=== PATIENT | female | born 1990 | race American Indian/Alaskan Native ===

== ENCOUNTER 2016-10-15 01:38 | Emergency (ER) | payer MEDICAID | END 2016-10-15 02:15 | disposition left against medical advice (07) | LOC: ED 01:38 | DX: H57.8 Other specified disorders of eye and adnexa (principal); Z53.21 Procedure and treatment not carried out due to patient leaving prior to being seen by health care provider ==

== ENCOUNTER 2017-09-06 23:47 | Emergency (ER) | payer MEDICAID ==
[2017-09-07] MEDS ORDERED: ZOFRAN IV ONE (01:44)
[2017-09-07] MEDS ORDERED: NACL 0.9% 1000 ML 1,000 ML IV ONE (01:44)
[2017-09-07] MEDS ORDERED: TYLENOL PO ONE (02:08)
[2017-09-07 02:38] LABS: Basophils % (Auto) 0.3 % (0.0-1.8); Eosinophils # (Auto) 0.2 K/mm3 (0.0-0.4); Eosinophils % (Auto) 1.7 % (0.0-4.3); Hematocrit 32.1 % (30.3-42.9); Hemoglobin 10.8 gm/dl (10.1-14.3); Lymphocytes # (Auto) 3.9 K/mm3 (1.2-5.4); Lymphocytes % (Auto) 34.7 % (13.4-35.0); Mean Corpuscular HGB Conc 34 % (30-34); Mean Corpuscular Hemoglobin 26 pg (28-32); Mean Corpuscular Volume 78 fl (79-97); Monocytes % (Auto) 8.7 % (0.0-7.3); Platelet Count 303 K/mm3 (140-440); Red Blood Count 4.14 M/mm3 (3.65-5.03); Red Cell Distribution Width 17.6 % (13.2-15.2)
[2017-09-07 03:12] LABS: BUN/Creatinine Ratio 20; Blood Urea Nitrogen 6 mg/dL (7-17); Calcium 8.8 mg/dL (8.4-10.2); Hemolysis Index 4
[2017-09-07 10:21] VITALS: BP 125/60
--- NOTE | 2017-09-07 10:36 | Emergency Department Report ---
ED HPI - General Chief complaint: Vaginal Bleeding Stated complaint: NAUSEA,HEADACHE Time Seen by Provider: 09/07/17 10:00 Source: patient Mode of arrival: Ambulatory Limitations: No Limitations - History of Present Illness Initial comments: She is a 27-year-old female that presents emergency room with complaints of vaginal spotting for 2 days. Patient complains of nausea and vomiting and headache for 2 weeks. Patient states that her headache has resolved. Patient states the vaginal spotting has stopped. Patient states that the nausea and vomiting are intermittent and is difficult to hold food down. Patient states she is able to hold fluids down. Patient denies abdominal pain. Patient denies chest pain shortness of breath. Patient denies fever or chills. Patient states she has not weeks based on her LMP. Patient states LMP is 07/06/2017 MD Complaint: vaginal bleeding (patient complains of intermittent vaginal spotting none now) -: Sudden Associated symptoms: nausea/vomiting, vaginal bleeding, headache. denies: vaginal discharge, abdominal pain, dysuria, vision changes, malaise, dysparuenia , rash, seizure, shortness of breath, syncope, weakness Vaginal bleeding: light :: Yes OB History - Current : no complications, hyperemesis OB History - Previous Pregnancies: no complications Pre- care: none - Related Data Home Medications Medication Instructions Recorded Confirmed Last Taken medroxyPROGESTERone ACETATE 150 mg IM Q3M 01/07/14 01/07/14 10/13/13 [Depo-Provera (Contraception)] Previous Rx's Medication Instructions Recorded Last Taken Type HYDROcodone/APAP 7.5-325 [[place] 1 each PO Q6HR PRN #20 tablet 01/07/14 Unknown Rx 7.5/325 mg] Ibuprofen [Motrin] 600 mg PO Q8H PRN #60 tablet 01/07/14 Unknown Rx Penicillin Vk [Veetids TAB] 500 mg PO QID #40 tablet 01/07/14 Unknown Rx Ondansetron [Zofran Odt] 4 mg PO Q6HR PRN #30 tab.rapdis 09/07/17 Unknown Rx Allergies Allergy/AdvReac Type Severity Reaction Status Date / Time shellfish derived Allergy Severe Shortness Verified 01/07/14 07:58 of Breath fish derived Allergy Intermediate Shortness Verified 01/07/14 07:58 of Breath ED Review of Systems ROS: Stated complaint: NAUSEA,HEADACHE Other details as noted in HPI Constitutional: denies: chills, fever Eyes: denies: eye pain, eye discharge, vision change ENT: denies: ear pain, throat pain Respiratory: denies: cough, shortness of breath, wheezing Cardiovascular: denies: chest pain, palpitations Endocrine: no symptoms reported Gastrointestinal: nausea, vomiting. denies: abdominal pain, diarrhea Genitourinary: denies: urgency, dysuria, discharge Musculoskeletal: denies: back pain, joint swelling, arthralgia Skin: denies: rash, lesions Neurological: headache. denies: weakness, paresthesias Psychiatric: denies: anxiety, depression Hematological/Lymphatic: denies: easy bleeding, easy bruising ED Past Medical Hx - Past Medical History Previous Medical History?: No Hx Hypertension: No Hx Congestive Heart Failure: No Hx Diabetes: No Hx Deep Vein Thrombosis: No Hx Renal Disease: No Hx Sickle Cell Disease: No Hx Seizures: No Hx Asthma: No Hx COPD: No Hx HIV: No - Surgical History Past Surgical History?: No - Family History Family history: no significant - Social History Smoking Status: Never Smoker Substance Use Type: None - Medications Home Medications: Home Medications Medication Instructions Recorded Confirmed Last Taken Type HYDROcodone/APAP 7.5-325 [[place] 1 each PO Q6HR PRN #20 tablet 01/07/14 Unknown Rx 7.5/325 mg] Ibuprofen [Motrin] 600 mg PO Q8H PRN #60 tablet 01/07/14 Unknown Rx Penicillin Vk [Veetids TAB] 500 mg PO QID #40 tablet 01/07/14 Unknown Rx medroxyPROGESTERone ACETATE 150 mg IM Q3M 01/07/14 01/07/14 10/13/13 History [Depo-Provera (Contraception)] Ondansetron [Zofran Odt] 4 mg PO Q6HR PRN #30 tab.rapdis 09/07/17 Unknown Rx ED Physical Exam - General Limitations: No Limitations General appearance: alert, in no apparent distress - Head Head exam: Present: atraumatic, normocephalic - Eye Eye exam: Present: normal appearance - ENT ENT exam: Present: mucous membranes moist - Neck Neck exam: Present: normal inspection - Respiratory Respiratory exam: Present: normal lung sounds bilaterally. Absent: respiratory distress - Cardiovascular Cardiovascular Exam: Present: regular rate, normal rhythm. Absent: systolic murmur, diastolic murmur, rubs, gallop - GI/Abdominal GI/Abdominal exam: Present: soft, normal bowel sounds - Extremities Exam Extremities exam: Present: normal inspection - Back Exam Back exam: Present: normal inspection - Neurological Exam Neurological exam: Present: alert, oriented X3 - Psychiatric Psychiatric exam: Present: normal affect, normal mood - Skin Skin exam: Present: warm, dry, intact, normal color. Absent: rash ED Course Vital Signs 09/06/17 09/07/17 09/07/17 23:52 01:38 07:46 Temperature 98.4 F 98.4 F 98.4 F Pulse Rate 69 67 55 L Respiratory 18 16 16 Rate Blood Pressure 120/71 120/71 Blood Pressure 127/72 [Left] O2 Sat by Pulse 100 100 100 Oximetry 09/07/17 10:20 Temperature Pulse Rate 59 L Respiratory 16 Rate Blood Pressure Blood Pressure 125/60 [Left] O2 Sat by Pulse 100 Oximetry - Reevaluation(s) Reevaluation #1: Discussed all results with patient. Patient is stable for discharge. We'll discharge patient home with prescription for nausea and vomiting and instructions to follow-up with [employer] as soon as possible. Patient had an early dose of Zofran and has not had nausea or vomiting since. Patient states her nausea vomiting and headache have resolved. We will do a by mouth challenge. 09/07/17 10:36 Reevaluation #2: . Patient tolerated by mouth challenge. patient is stable for discharge. Instructed to advance diet as tolerated and take vitamin 09/07/17 10:47 ED Medical Decision Making - Lab Data Result diagrams: 09/07/17 Unknown 09/07/17 Unknown - Radiology Data Radiology results: report reviewed Ultrasound reviewed and shows a single IUP at 9 weeks and 1 day - Medical Decision Making She has a 27-year-old female presents to [facility] with vaginal spotting and nausea and vomiting and headache. Ultrasound done and show stable IUP. Patient is stable for discharge. Discharge instructions given to patient - Differential Diagnosis n/v. vaginal spotting. Critical care attestation.: If time is entered above; I have spent that time in minutes in the direct care of this critically ill patient, excluding procedure time. ED Disposition Clinical Impression: , Nausea/vomiting in Disposition: DC-01 TO HOME OR SELFCARE Is pt being admited?: No Does the pt Need Aspirin: No Condition: Stable Instructions: (ED), Hyperemesis Gravidarum (ED) Additional Instructions: Patient follow-up with primary care in 3-5 days. 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 Patient to return to ER if condition worsens. Patient to start vitamin. Patient to increase water. Patient to rest. Patient to increase diet as tolerated. Prescriptions: Ondansetron [Zofran Odt] 4 mg PO Q6HR PRN #30 tab.rapdis PRN Reason: Nausea And Vomiting Referrals: PRIMARY CARE,MD [Primary Care Provider] - 3-5 Days Forms: Accompanied Note, Work/School Release Form(ED) Time of Disposition: 10:45
--- NOTE | 2017-09-08 14:29 | Ultrasound Report ---
FINAL REPORT PROCEDURE: US OB < = 14 WEEKS FETUS TECHNIQUE: Real-time transabdominal sonography of the uterus, placenta, amniotic fluid, adnexa, and fetus was performed with image documentation. Measurements were obtained to determine age/size. M-mode Doppler was used to document heartbeat. CPT 90672 HISTORY: vaginal bleeding COMPARISON: No prior studies are available for comparison. FINDINGS: CRL: 24.5 mm, which corresponds to a gestational age of: 9 weeks, 1 days. Yolk Sac: Normal. Embryonic Cardiac Activity: 166 beats per minute Gestational Sac: Normal. Amniotic fluid: Normal. Cervix: Normal. Right Ovary: Normal. Left Ovary: Normal. Estimated delivery date: 04/11/2018 Uterus and adnexa: Normal. IMPRESSION: Single live intrauterine gestation at approximately 9 weeks and 1 day. EDC by 04/11/2018
--- NOTE | 2017-09-08 14:29 | Ultrasound Report ---
FINAL REPORT PROCEDURE: US OB < = 14 WEEKS FETUS TECHNIQUE: Real-time transvaginal sonography of the uterus, placenta, amniotic fluid, adnexa, and fetus was performed with image documentation. Measurements were obtained to determine age/size. M-mode Doppler was used to document heartbeat. HISTORY: vaginal bleeding COMPARISON: No prior studies are available for comparison. FINDINGS: CRL: 24.5 mm, which corresponds to a gestational age of: 9 weeks, 1 days. Yolk Sac: Normal. Embryonic Cardiac Activity: 166 beats per minute Gestational Sac: Normal. Amniotic fluid: Normal. Cervix: Normal. Right Ovary: Normal. Left Ovary: Normal. Estimated delivery date: 04/11/2018 Uterus and adnexa: Normal. IMPRESSION: Single live intrauterine gestation at approximately 9 weeks and 1 day. EDC by 04/11/2018
== END 2017-09-07 11:00 | disposition home or self-care (01) ==
LOC: ED 23:47
DX: O21.9 Vomiting of pregnancy, unspecified (principal); Z3A.09 9 weeks gestation of pregnancy; Z91.013 Allergy to seafood
CPT/HCPCS: 36415; 76801; 76817; 80048; 84702; 85025; 96361; 96374; 99284; J2405; J7030

== ENCOUNTER 2018-05-18 11:04 | Emergency (ER) | payer BC, MEDICAID, OTHER ==
[2018-05-18 14:19] LABS: Hematocrit 30.9 % (30.3-42.9); Hemoglobin 9.7 gm/dl (10.1-14.3); Mean Corpuscular HGB Conc 32 % (30-34); Mean Corpuscular Volume 71 fl (79-97); Platelet Count 397 K/mm3 (140-440); Red Blood Count 4.33 M/mm3 (3.65-5.03); Red Cell Distribution Width 18.4 % (13.2-15.2)
[2018-05-18 14:30] LABS: BUN/Creatinine Ratio 18; Blood Urea Nitrogen 7 mg/dL (7-17); Calcium 8.6 mg/dL (8.4-10.2); Hemolysis Index 2
--- NOTE | 2018-05-18 14:45 | Emergency Department Report ---
ED Recheck HPI - General Chief Complaint: Abdominal Pain Stated Complaint: POST SURGICAL Time Seen by Provider: 05/18/18 14:40 Source: patient Mode of arrival: Ambulatory Limitations: No Limitations - History of Present Illness Initial Comments: Patient comes to the ER today for a recheck after having a on 1225. She had her baby here. Her HARP REGULATOR was actually at another hospital but since she was unable to make it to the hospital for the delivery he will not see her until she is 3 months . Patient really just wanted a recheck she is having no problems no pain. The wound is closed well approximated and healing. She is mind return to work. - Related Data Allergies Allergy/AdvReac Type Severity Reaction Status Date / Time shellfish derived Allergy Severe Shortness Verified 01/07/14 07:58 of Breath fish derived Allergy Intermediate Shortness Verified 01/07/14 07:58 of Breath ED Review of Systems ROS: Stated complaint: POST SURGICAL Other details as noted in HPI Comment: All other systems reviewed and negative Constitutional: denies: chills, fever Eyes: denies: eye pain ENT: denies: ear pain Respiratory: denies: cough Cardiovascular: denies: palpitations Endocrine: denies: excessive sweating Gastrointestinal: denies: abdominal pain, nausea, vomiting Genitourinary: denies: urgency Musculoskeletal: denies: back pain Skin: as per HPI, other ([facility] denies: rash, lesions Neurological: denies: weakness Psychiatric: denies: anxiety Hematological/Lymphatic: denies: easy bleeding ED Past Medical Hx - Past Medical History Hx Hypertension: No Hx Congestive Heart Failure: No Hx Diabetes: No Hx Deep Vein Thrombosis: No Hx Renal Disease: No Hx Sickle Cell Disease: No Hx Seizures: No Hx Asthma: No Hx COPD: No Hx HIV: No - Surgical History Additional Surgical History: c sect - Social History Smoking Status: Never Smoker Substance Use Type: None ED Physical Exam - General Limitations: No Limitations General appearance: alert - Head Head exam: Present: atraumatic - Eye Eye exam: Present: PERRL - ENT ENT exam: Present: mucous membranes moist - Neck Neck exam: Present: normal inspection - Respiratory Respiratory exam: Present: normal lung sounds bilaterally - GI/Abdominal GI/Abdominal exam: Present: soft, normal bowel sounds, other (NON TENDER WELL APPROXIMATED NO DRAINAGE. ) ED Course Vital Signs 05/18/18 11:26 Temperature 97.6 F Pulse Rate 66 Respiratory 18 Rate Blood Pressure 128/67 [Left] O2 Sat by Pulse 100 Oximetry ED Recheck MDM - Differential Diagnosis Wound Recheck - Medical Decision Making PT HERE FOR WOUND CHECK SHE IS POST 03/31 HER OB WONT SEE HER BECAUSE SHE HAD BABY HERE SHE HAS NO COMPLAINTS OF PAIN NO FEVER NO DRAINAGE FROM INCISION SHE IS WANTING TO GO TO WORK AND NEEDED CLEARANCE TO DO SO Critical care attestation.: If time is entered above; I have spent that time in minutes in the direct care of this critically ill patient, excluding procedure time. ED Disposition Clinical Impression: Follow up Disposition: DC-01 TO HOME OR SELFCARE Is pt being admited?: No Does the pt Need Aspirin: No Condition: Stable Referrals: DEBORAH PARK MD [Primary Care Provider] - 3-5 Days Forms: Work/School Release Form(ED) Time of Disposition: 14:44
[2018-05-18 15:18] VITALS: BP 130/70
== END 2018-05-18 15:17 | disposition home or self-care (01) ==
LOC: ED 11:04
DX: Z09 Encounter for follow-up examination after completed treatment for conditions other than malignant neoplasm (principal); Z91.013 Allergy to seafood
CPT/HCPCS: 36415; 80048; 85027; 99283